=== PATIENT | female | born 1985 | race Caucasian/White ===

== ENCOUNTER 2017-06-11 07:48 | Emergency (ER) | payer BC ==
[~2017-06-11] VITALS: Ht 154.9 cm; Wt 104.3 kg
--- NOTE | ~2017-06-11 | EKG ---
PATIENT: BROOKE UREÑA UNIT #: [id number] Ventricular Rate: 78 BPM Atrial Rate: 78 BPM P-R Interval: 128 ms QRS Duration: 90 ms Q-T Interval: 360 ms QTC Calculation(Bezet): 410 ms P [place]: 34 degrees Calculated R [place]: 15 degrees Calculated T [place]: 19 degrees Diagnosis Line: Normal sinus rhythm Diagnosis Line: Normal ECG Diagnosis Line: No previous ECGs available Diagnosis Line: Confirmed by DIMAS ELIZALDE MD ([id number]) on Diagnosis Line: 06/12/2017 2:33:41 PM INTERPRETING MD: TONIO ACEVEDO
--- NOTE | ~2017-06-11 | CR72 ---
[facility] A Service of [facility] RADIOLOGY TEXT RESULTS PATIENT: BROOKE UREÑA LOCATION: [place] : [birth year] UNIT #: [id number] AGE: [address]: Hamlet Garcia MD SEX: F ORDER DR: [id number] [address] [address] [id number] MR#: [id number] Acc #: [id number] NAME: BROOKE UREÑA : 1985 SEX: F STUDY DATE/TIME: 06/11/2017 8:29 UNIT: SED ROOM: STUDY DESCRIPTION: CR Chest Single View Portable Attending Physician: Hamlet Garcia M.D. Ordering Physician: Hamlet Garcia M.D. Primary Care Physician: Primary Care Physician No MEDICAL IMAGING REPORT This report is preliminary unless electronic signature is present. EXAM Portable chest HISTORY Chest pain beginning 06/08/2017 with tightness in the shoulder. Pain radiates toward the left. COMPARISON 12/31/2005 TECHNIQUE A single view of the chest was obtained. FINDINGS A single AP portable view of the chest shows both lungs to be clear. The heart is normal in size. The mediastinal contour is normal. No significant bone abnormalities are seen. IMPRESSION Normal portable chest. Dictated by... Nicanor Mendez M.D. THIS IS AN ELECTRONICALLY VERIFIED REPORT Nicanor Mendez M.D. at 06/11/2017 4:51 PM RLF/to TD: 06/11/2017 14:07 JOB #: [id number] MEDICAL IMAGING REPORT [facility] A Service of [facility] RADIOLOGY TEXT RESULTS PATIENT: BROOKE UREÑA LOCATION: [place] : [birth year] UNIT #: [id number] AGE: [address]: Hamlet Garcia MD SEX: F ORDER DR: Page 1 of 1
[2017-06-11] MEDS ORDERED: GLUMETZA500 MG (07:56)
[2017-06-11 08:29] LABS: BASOPHIL% 0.5 % (0-2.5); DIFF IND NO; EOSINOPHIL# 0.2 X10e3 (0-0.7); EOSINOPHIL% 2.7 % (0.0-7.0); HEMATOCRIT 30.4 % (35.0-45.0); HEMOGLOBIN 9.6 gm/dL (12.0-16.0); LYMPHOCYTE# 1.7 X10e3 (1.0-3.5); LYMPHOCYTE% 27.6 % (17.0-45.0); MEAN CELL VOLUME 66.8 FL (83-96); MEAN CORPUSCULAR HEMOGLOBIN 21.2 PG (28-34); MEAN CORPUSCULAR HGB CONC 31.7 g/dL (30-36); MEAN PLATELET VOLUME 7.3 FL (6.5-11.5); MONOCYTE# 0.2 X10e3 (0-1.0); MONOCYTE% 2.9 % (3.0-12.0); NEUTROPHIL% 66.3 % (40-75); PLATELET COUNT 339 X10e3 (140-420); RED BLOOD COUNT 4.55 X10e (3.90-5.30); RED CELL DISTRIBUTION WIDTH 16.2 % (11.0-15.5)
[2017-06-11 08:43] LABS: POC - CKMB <1.0 ng/mL (0.0-7.9); POC - TROPONIN <0.05 ng/mL (<=0.05)
[2017-06-11 08:55] LABS: BILIRUBIN,TOTAL 0.4 mg/dL (0.2-2.0); BUN/CREATININE RATIO 16.66; CALCIUM SERUM 8.6 mg/dL (8.4-10.2); CREATININE SERUM 0.9 mg/dL (0.6-1.4); GLOM FILT RATE Estimated 86.5 mL/min (>60); POTASSIUM 3.7 mmol/L (3.5-5.1); PROTEIN TOTAL SERUM 8.2 g/dL (6.0-8.3)
== END 2017-06-11 09:20 | disposition home or self-care (01) ==
LOC: SED 07:48
PROVIDERS: Emergency Medicine
DX: R07.89 Other chest pain (principal); M25.512 Pain in left shoulder; D64.9 Anemia, unspecified; Z88.8 Allergy status to other drugs, medicaments and biological substances
CPT/HCPCS: 36415; 71010; 80053; 82553; 84484; 85025; 85379; 93005; 99284